=== PATIENT | female | born 1980 | race Caucasian/White ===

== ENCOUNTER → 2021-05-14 15:25 | Outpatient (CLI) | payer BC, SELFPAY ==
--- NOTE | ~2021-05-14 | MM_ITS ---
EXAMINATION: MM screening arcelia BI w kelly HISTORY: Screening mammogram TECHNIQUE: Craniocaudal and mediolateral oblique 3-D tomosynthesis images were obtained and synthetic 2-D images were generated. Bilateral rotated lateral CC views. CAD analysis was submitted and interp reted. COMPARISON: No prior mammogram is available for comparison at this institution. BREAST PARENCHYMAL COMPOSITION: FINDINGS: There are 6 mm and 7.5 mm circumscribed opacities in the upper outer left breast and 7 mm c ircumscribed opacity in the upper outer right breast. These are likely benign intramammary lymph node There is no evidence of suspicious mass, calcification, or architectural distortion to suggest malig faith in either breast. There has been no suspicious interval change. IMPRESSION: 1. No mammographic evidence of malignancy. 2. Recommend routine screening mammography in one year. BI-RADS Category 2: Benign finding(s). Reviewed, dictated and finalized at location A.
== END ==
PROVIDERS: Visit Provider Nurse Practitioner Obstetrics & Gynecology
DX: Z12.31 Encounter for screening mammogram for malignant neoplasm of breast (principal)
CPT/HCPCS: 77063; 77067

== ENCOUNTER 2022-07-04 16:24 | Emergency (ER) | payer BC, SELFPAY ==
[2022-07-04 16:30] VITALS: BP 130/88; PULSE 88; RESP 16; TEMP 37; O2SAT 100
--- NOTE | 2022-07-04 16:36 | ED.URI ---
HPI - URI/Sore Throat General Chief Complaint: Upper Respiratory Infection Stated Complaint: chest congestion, productive cough Time Seen by Provider: 07/04/22 16:36 Source: patient Mode of arrival: ambulatory History of Present Illness HPI Narrative: [age] year female presents with complaint of chest congestion, cough, sinus congestion for 4 days. Afebrile. No headache. No body aches or chills. Denies chest pain or shortness of breath. No nausea vomiting diarrhea. Taking [id number] medications to treat her symptoms without relief. States her father in law and had similar symptoms ever given a Z-Chevy. Patient is requesting an antibiotic. All systems reviewed and negative except as noted above. Related Data Allergies Allergy/AdvReac Type Severity Reaction Status Date / Time amoxicillin Allergy Unknown Itching Verified 07/04/22 16:44 Review of Systems Review of Systems: CONSTITUTIONAL: Denies fever, chills, or sweats. EYES: Denies visual changes, redness, or discharge. ENT: Reports rhinorrhea, congestion, sore throat. Denies otalgia. CARDIOVASCULAR: Denies chest pain, palpitations, or edema. RESPIRATORY: Reports cough. Denies dyspnea. GASTROINTESTINAL: Denies abdominal pain, nausea, vomiting, or diarrhea. GENITOURINARY: Denies dysuria or hematuria. SKIN: Denies rash or itching. MUSCULOSKELETAL: Denies back pain, joint pain, or myalgia. NEUROLOGIC: Denies headache, numbness, or weakness. PSYCHIATRIC: Denies anxiety or depression. All other systems reviewed are negative, except as documented in HPI. COUNT INCLUDES THE [facility] Social History Social History Smoking status: Never smoker Alcohol intake: never Exam Narrative: GENERAL: This is a well-nourished, well-developed patient, in no apparent distress. HEAD: normocephalic, atraumatic. EYES: PERRL. Sclera clear/white. Vision is grossly intact. EARS: External ears normal, auditory canals clear and without drainage, TMs normal without perforation. Hearing grossly intact. NOSE: External nose normal with clear nasal drainage, erythema to nares. THROAT: Mucous membranes moist, posterior pharynx clear. NECK: Neck supple, non-tender without lymphadenopathy, masses or thyromegaly. CARDIOVASCULAR: Regular rate and rhythm without murmurs, gallops, or rubs. RESPIRATORY: Clear to auscultation. Breath sounds equal bilaterally. No wheezes, rales, or rhonchi. SKIN: warm, Dry, intact with no suspicious lesions or rash, good texture and turgor. NEURO: awake, alert, and oriented to person, place and time. There were no obvious focal neurologic abnormalities. EXTREMITIES: No joint tenderness, effusion, or edema noted. Course Course Level of Care: Express Care Visit Vital Signs Vital signs: Vital Signs Temperature 37.0 C 07/04/22 16:30 Pulse Rate 88 07/04/22 16:30 Respiratory Rate 16 07/04/22 16:30 Blood Pressure 130/88 07/04/22 16:30 Pulse Oximetry 100 07/04/22 16:30 Oxygen Delivery Room Air 07/04/22 16:30 Temperature 37.0 C 07/04/22 16:30 Pulse Rate 88 07/04/22 16:30 Respiratory Rate 16 07/04/22 16:30 Blood Pressure 130/88 07/04/22 16:30 Pulse Oximetry 100 07/04/22 16:30 Oxygen Delivery Room Air 07/04/22 16:30 Reviewed MDM - URI/Sore Throat MDM Narrative Medical decision making narrative: Patient is well-appearing. Clear lung sounds. Symptoms viral. Explained to patient that an antibiotic is not required but she is insistent on having one. Patient is aware of diagnosis, understands and agrees to treatment plan. Anticipatory guidance given. Patient agrees to follow-up as directed and is aware of reasons to seek care at the emergency department. Portions of this record may have been created with voice recognition software Differential Diagnosis Differential diagnosis: Likely upper respiratory infection, sinusitis and viral infection Discharge Plan Discharge Clinical Impression: Acute upper respiratory infection
== END 2022-07-04 16:50 | disposition home or self-care (01) ==
PROVIDERS: Emergency Provider Nurse Practitioner Family; PCP Family Medicine
DX: J06.9 Acute upper respiratory infection, unspecified (principal)
CPT/HCPCS: 99203; G0463

== ENCOUNTER → 2022-08-19 11:01 | Outpatient (CLI) | payer BC, SELFPAY ==
--- NOTE | ~2022-08-19 | MM_ITS ---
EXAMINATION: MM screening arcelia BI w kelly HISTORY: Screening mammogram TECHNIQUE: Craniocaudal and mediolateral oblique 3-D tomosynthesis images were obtained and synthetic 2-D images were generated. CAD analysis was submitted and interpreted. COMPARISON: 05/14/2021 bilateral screening mammogram BREAST PARENCHYMAL COMPOSITION: The breasts are heterogeneously dense, which may obscure small masses . FINDINGS: Stable bilateral benign-appearing axillary tail circumscribed lymph nodes There is no evide nce of suspicious mass, calcification, or architectural distortion to suggest malignancy in either br east. There has been no suspicious interval change. IMPRESSION: 1. No mammographic evidence of malignancy. 2. Recommend routine screening mammography in one year. BI-RADS Category 2: Benign finding(s). Reviewed, dictated and finalized at location A. WRITER
== END ==
PROVIDERS: PCP Family Medicine; Visit Provider Nurse Practitioner Obstetrics & Gynecology
DX: Z12.31 Encounter for screening mammogram for malignant neoplasm of breast (principal)
CPT/HCPCS: 77063; 77067

== ENCOUNTER 2024-01-07 14:11 | Outpatient (CLI) | payer BC, SELFPAY ==
--- NOTE | ~2024-01-07 | MM_ITS ---
EXAMINATION: MM screening arcelia BI w kelly HISTORY: Screening TECHNIQUE: Craniocaudal and mediolateral oblique 3-D tomosynthesis images were obtained and synthetic 2-D images were generated. CAD analysis was submitted and interpreted. COMPARISON: Comparison to multiple prior studies sequentially, with oldest reviewed study dated 04/27. BREAST PARENCHYMAL COMPOSITION: There are scattered areas of fibroglandular density. FINDINGS: Bilateral asymmetries are stable. There is no evidence of suspicious mass, calcification, o r architectural distortion to suggest malignancy in either breast. There has been no suspicious inter clemente change. IMPRESSION: 1. No mammographic evidence of malignancy. 2. Recommend routine screening mammography in one year. BI-RADS Category 2: Benign finding(s). Reviewed, dictated and finalized at location B.
== END 2024-01-07 14:12 ==
LOC: MICIMG 14:12
PROVIDERS: PCP Nurse Practitioner Obstetrics & Gynecology; Visit Provider Nurse Practitioner Obstetrics & Gynecology
DX: Z12.31 Encounter for screening mammogram for malignant neoplasm of breast (principal)
CPT/HCPCS: 77063; 77067

== ENCOUNTER 2024-08-26 08:25 | Emergency (ER) | payer BC, SELFPAY ==
[2024-08-26 08:51] VITALS: BP 156/103; PULSE 86; RESP 16; TEMP 36.5; O2SAT 100
--- NOTE | 2024-08-26 09:27 | ED_ITS ---
HPI - URI/Sore Throat General Chief Complaint: Upper Respiratory Infection Stated Complaint: COUGH/CONGESTION Time Seen by Provider: 08/26/24 09:27 Source: patient, RN notes reviewed and old records reviewed Mode of arrival: ambulatory Limitations: no limitations History of Present Illness HPI Narrative: 43-year-old female presents to the [facility] with complaints of cough and congestion since new year'. States that prior to this she had sinus issues. Denies ever running a fever. Has been taken [id number] products with no relief. Denies any chest pain. Onset (ago): month(s) (1) Treatments prior to arrival: cold medicine Related Data Home Medications ?Medication ?Instructions ?Recorded ?Confirmed ?Last Taken ?Type No Home Medications 08/26/24 08/26/24 Unknown History Allergies Allergy/AdvReac Type Severity Reaction Status Date / Time amoxicillin Allergy Unknown Itching Verified 08/26/24 09:01 Review of Systems Review of Systems: All systems reviewed & are unremarkable except as noted in HPI and below Constitutional: Constitutional: Reports no additional constitutional complaints ENT: Reports system reviewed and no additional complaints, except as documented Cardiovascular: Cardiovascular: Reports no additional cardiovascular complaints, Denies chest pain and Denies dyspnea Respiratory: Respiratory: Reports as per HPI, Denies chest congestion, Reports cough and Denies dyspnea Musculoskeletal: Musculoskeletal: Reports no additional musculoskeletal complaints Integumentary/Breasts: Skin/Breast: Reports system reviewed and no additional complaints, except as docu PMFSH Social History Social History Smoking status: Never smoker Alcohol intake: never Comments At the time of my signature, I reviewed and agree with the nursing past medical, surgical, social, and family history. There is no relevant family history pertinent to the patient complaint. Exam Const: General: cooperative, healthy appearing, comfortable, no acute distress, well developed, alert and well nourished Nutritional Appearance: well nourished Orientation/consciousness: patient oriented x3 Limitations: no limitations HENMT: Head: normal to inspection Ears: hearing grossly normal bilaterally, external ears normal, TM's normal bilaterally, EAC's normal, mastoids normal and no periauricular adenopathy Mouth: Yes Normal oral and palatal mucosa present, Yes lip normal, Yes tongue normal and Yes moist mucous membranes Throat: posterior oropharynx normal, uvula midline and no uvular edema Eyes: General: appearance normal, both eyes and all related structures Alignment and Position: alignment normal Neck: Neck: normal visual inspection, full ROM, no lymphadenopathy and no meningeal signs Chest: Chest palpation & inspection: normal inspection of the chest Resp: Effort & Inspection: normal respiratory effort and able to speak in complete sentences Auscultation: clear to auscultation bilaterally, no crackles, no rales, no rhonchi and no wheezes Cardio: Rate: regular rate Skin: General skin exam: normal color and no rashes or lesions noted Neuro: General: patient oriented x3, gait normal, moves all extremities and no meningeal signs Cognition (Neuro): normal cognition Speech: normal speech Gait exam (Neuro): Normal gait present Extrem: General: normal to inspection, full ROM, capillary refill normal and normal gait Psych: Appearance: grossly normal and well kempt Mental Status: mental status grossly normal Speech and movement: Normal speech and movement present and Clear speech present Affect: normal affect Attitude: cooperative Course Course Level of Care: Express Care Visit Vital Signs Vital signs: Vital Signs Temperature 97.7 F 08/26/24 08:51 Pulse Rate 86 08/26/24 08:51 Respiratory Rate 16 08/26/24 08:51 Blood Pressure 156/103 H 08/26/24 08:51 Pulse Oximetry 100 08/26/24 08:51 Temperature 97.7 F 08/26/24 08:51 Pulse Rate 86 08/26/24 08:51 Respiratory Rate 16 08/26/24 08:51 Blood Pressure 156/103 H 08/26/24 08:51 Pulse Oximetry 100 08/26/24 08:51 Reviewed MDM - URI/Sore Throat MDM Narrative Medical decision making narrative: Patient sitting comfortably in exam room. Nontoxic, vitals stable. Cough x1 month. Started with URI symptoms which have resolved. No acute findings noted on exam. Discussed with patient that this could be a post viral bronchitis and can last for several weeks if not a couple of months. Due to length of symptoms will prescribe doxy as well as prednisone Patient appropriate for outpatient treatment and follow-up, blood pressure check Discharge instructions reviewed with patient, as well as provided in writing per nursing staff. The instructions also include specific and strict return/GO TO THE ER as well as f/u information. All questions have been answered, and the patient deny any further questions with discharge and discharge plan. Some parts of this dictation were generated by voice recognition software and may contain typographical and/or grammatical inaccuracies. Differential Diagnosis Differential diagnosis: Likely upper respiratory infection, otitis media, sinusitis, viral infection and bronchitis Critical Care Time Critical Care Time Critical Care Time: No Discharge Plan Discharge Clinical Impression: Bronchitis Patient Disposition: Home, Self-Care Condition: Stable Instructions: Acute Bronchitis (ED) Additional Instructions: Today your blood pressure was 156/103. Is recommended that you follow-up with your primary care provider within the next 2 weeks to have your blood pressure rechecked. It is very important to treat your symptoms. Drink plenty of water, Gatorade, Pedialyte, ice pops or Jell-O. -Alternate Tylenol and Motrin per package directions for fever or pain. You can alternate every 4 hours -Antihistamine medication such as Zyrtec/Claritin/Teetee during the day can help improve symptoms. -doing daily nasal irrigations can help relieve pressure your sinuses. Things like a Neti pot -Use Flonase twice a day for 5 days then daily to help reduce the inflammation and dry up your sinuses. -You can also use Mucinex. Be sure to drink plenty of water with this medication at least 8 ounces with every dose and it is important to drink 8 to 10 glasses of water per day. Water is a natural decongestant -Eat and drink things that are easy to swallow, like tea or soup, or popsicles. -Oral rinses such as: Salt water gargles and/or may use topical anesthetic (eg. Chloraseptic spray) or lozenges to relieve dryness or throat pain). -Frequent hand washing or hand scientific informatics leader is one of the best ways to prevent spread of infection. -Using a vaporizer or humidifier at night will also help thin secretions and help with coughing up phlegm. -Follow up with primary care provider in 7-10 days if condition is not improving - For new or worsening symptoms go directly to the nearest ER Patient Language: Upper Sorbian Prescriptions: New doxycycline monohydrate 100 mg tablet 100 mg PO BID Qty: 14 0RF prednisone 20 mg tablet See Rx Instructions .Route .COMPLEX Qty: 9 0RF Rx Instructions: Take 40 mg daily for 3 days, 20 mg daily for 3 days No Action No Home Medications Follow-up/Referrals: Ab Marx MD [Primary Care Provider[facility] Blood pressure check, 156/103) Time of Disposition: 09:41
== END 2024-08-26 09:54 | disposition home or self-care (01) ==
PROVIDERS: Emergency Provider Nurse Practitioner; PCP Family Medicine
DX: J40 Bronchitis, not specified as acute or chronic (principal)
CPT/HCPCS: 99213; G0463

== ENCOUNTER 2024-12-10 08:19 | Outpatient (CLI) | payer BC, SELFPAY ==
--- OUTSIDE RECORDS SUMMARY | 2024-12-10 08:26 | XMS_ITS | Data Portability ---
Author Organization [facility] Address [address] [place] [address] [place] [address] Care Team Providers Care Post Framer Name Role Phone BARBIE COLE Primary Care Provider [phone] Assessment Encounter Date Assessment Date Assessment LastModified by Organization Details LastModified Time 04/17/2021 04/17/2021 Annual gynecological exam performed. Patient will come back in a year unless there are new symptoms. Not available 04/16/2021 11:50:39 07/01/2022 07/01/2022 Annual gynecological exam performed. Patient will come back in a year unless there are new symptoms. Not available 07/01/2022 10:48:02 09/09/2023 09/09/2023 Annual gynecological exam performed. Patient will come back in a year unless there are new symptoms. [email or web address] Not available 09/09/2023 09:16:39 09/13/2024 09/13/2024 Annual gynecological exam performed. Patient will come back in a year unless there are new symptoms. [email or web address] Not available 09/13/2024 09:22:11 Plan of Treatment Reminders Order Date Submit Date Provider Last Modified By Organization Details Last Modified Time Details Appointments None recorded. Lab None recorded. Referral None recorded. Procedures None recorded. Surgeries None recorded. Imaging MAMMO, screening, digital, bilateral 2024 025 [facility], [address], [place], [address], 02/24/202 5 04:04:05 MAMMO, screening, bilateral 2023 024 [facility], [address], [facility] [address], [place], [address], 4 17:37:07 Medication Orders None recorded. Patient TargetsNo targets recorded. Patient InstructionsNo instructions recorded. Reason for Referral None Reported. Results Created Date Observation Date Name Description Value Unit Range Abnormal Flag Note LastModifiedBy Organization Detail LastModifiedTime 04/17/20 21 04/17/2021 IMAGE GUIDE D PAP AND HPV REGAR DLESS image guided Pap, HPV regardless of Pap result SEE RESULT S BELOW CASE REPOR T: Cytol ogy Gynec ologi radha Repor t Case: [id number] Autho isma ruiz Provi violet: Adalid Patrick Colle cted: 04/17 1156 FIELD SUPPORT REP Order ing Locat ion: [place] [facility] Recei suman: 04/18 0702 First Scree n: Bear [place], POLA Speci men: Scree breann Pap - Image d, Cervi x STATE MENT OF ADEQU ACY: Satis facto ry for evalu ation Trans forma tion zone compo nent prese nt FINAL DIAGN OSIS: Negat alessia for Intra epith elial Mohan n or Karen cuevas (NIL) Elect fermin hernandez nayeli d by Bear [place], CT on 2020 at 11:03 AM ----- ----- ----- ----- ----- ----- ----- ----- ----- ----- ----- ----- ----- ----- ----- ----- ----- ---- HPV RESUL TS: HPV mRNA E6/E7 : No HPV mRNA Detec rosita NOTE: This high risk HPV mRNA assay detec ts fourt een high- risk HPV types (16, 18, 31, 33, 35, 39, 45, 51, 52, 56, 58, 59, 66, 68) witho ut diffe renti ation . COMME NT: Note: This speci men was revie wed by a Cytot echno logis t and/o r Patho logis t (as indic ated in this repor t) after evalu ation using the Thinp rep Imagi ng Syste m. CLINI RADHA INFOR MATIO N: Menst rual Statu s: LMP (if appli cable ): 2020 Clini radha Histo ry/Pr eviou s Pap: Type of Neopl benedict (if appli cable ): Signi fican t Clini radha Findi ngs: Other Histo ry: Hormo jason (if appli cable ): PAP EDUCA FRANSISCA L NOTE: The Pap Test is a scree breann test with an inher ent false negat alessia rate. Liqui d-bas e sampl ing may decre ase, but will not elimi jose, false negat alessia resul ts. A negat alessia resul t does not precl ude the prese nce and/o r devel opmen t of disea se, since the prese nce of abnor mal cells in the sampl e depen ds on the locat ion of the lesio n and sampl ing techn ique. Osmany nued regul ar scree breann is the best metho d of cance r preve ntion . If repor rosita cytol ogic findi ng do not corre late with physi radha and/o r histo rical findi ngs, furth er inves tigat ion is recom puja d, as clini trevor vera nted. Not Available [facility] (Lab) [address] , [place], [address], 04/21/2021 12:04:58 04/17/20 21 04/17/2021 TRICH OMONA S VAGIN YANICK (RRNA ) trichomonas vaginalis ribosomal RNA (rrna) Negati ve negati ve Not Available [facility] (Lab) [address], [place], [address], 04/21/2021 12:04:58 04/17/20 21 04/17/2021 CT/GC (JORY) , THINP REP VIAL chlamydia trachomatis, PCR Negati ve negati ve Not Available [facility] (Lab) [address] [facility], [place], [address], 04/21/2021 12:04:59 04/17/20 21 04/17/2021 CT/GC (JORY) , THINP REP VIAL neisseria gonorrhoeae, PCR Negati ve negati ve Not Available [facility] (Lab) [address], [place], [address], 04/21/2021 12:04:59 07/01/20 22 07/01/2022 IMAGE GUIDE D PAP AND HPV REGAR DLESS image guided Pap, HPV regardless of Pap result SEE RESULT S BELOW CASE REPOR T: Cytol ogy Gynec ologi radha Repor t Case: [id number] Autho isma ruiz Provi violet: Adalid Patrick Colle cted: 07/01 1653 FIELD SUPPORT REP Order ing Locat ion: [place] Path[facility] [place] Recei suman: 07/02 0115 First Scree n: Yany Hidalgo ica Rescr een: Ileana Archer Speci men: Scree breann Pap - Image d, Cervi x STATE MENT OF ADEQU ACY: UNSAT ISFAC TORY SPECI MEN FINAL DIAGN OSIS: Unsat isfac tory for evalu ation . Inade quate squam ous epith elial compo nent for diagn osis. Chase tyler d by Ileana Archer on 2021 at 5:02 PM ----- ----- ----- ----- ----- ----- ----- ----- ----- ----- ----- ----- ----- ----- ----- ----- ----- ---- HPV RESUL TS: HPV mRNA E6/E7 : No HPV mRNA Detec rosita NOTE: This high risk HPV mRNA assay detec ts fourt een high- risk HPV types (16, 18, 31, 33, 35, 39, 45, 51, 52, 56, 58, 59, 66, 68) witho ut diffe renti ation . COMME NT: Slide scree robert rubin mimsy due to rejec tion by the Thinp rep Maria Estheri jennifer Wheatley mBoaz CLINI RADHA INFOR MATIO N: Menst rual Statu s: LMP (if appli cable ): Clini radha Histo ry/Pr eviou s Pap: Type of Neopl benedict (if appli cable ): Signi fican t Clini radha Findi ngs: Other Histo ry: Hormo jason (if appli cable ): Not Available [facility] (Lab) [address], [place], [address], 07/02/2022 18:05:31 09/09/19 24 09/09/2023 IMAGE GUIDE D PAP AND HPV REGAR DLESS image guided Pap, HPV regardless of Pap result SEE RESULT S BELOW CASE REPOR T: Cytol ogy Gynec ologi radha Repor t Case: [id number] Autho isma ruiz Provi violet: Adalid Patrick Colle cted: 09/09 1517 FIELD SUPPORT REP Order ing Locat ion: [place] [facility] Recei suman: 09/10 0344 First Scree n: Rebeca Chin ed, CT Speci men: Manoj beaverg Pap - Image d, Cervi x STATE MENT OF ADEQU ACY: Satis facto ry for evalu ation Trans forma tion zone compo nent prese nt FINAL DIAGN OSIS: Negat alessia for Intra epith elial Mohan milligan or Karen cuevas (NIL) . Chase hernandez nayeli d by Rebeca Chin ed, CT on 2023 at 6:06 PM ----- ----- ----- ----- ----- ----- ----- ----- ----- ----- ----- ----- ----- ----- ----- ----- ----- ---- HPV RESUL TS: HPV mRNA E6/E7 : No HPV mRNA Detec rosita NOTE: This high risk HPV mRNA assay detec ts fourt een high- risk HPV types (16, 18, 31, 33, 35, 39, 45, 51, 52, 56, 58, 59, 66, 68) witho ut diffe renti ation . COMME NT: This speci men was revie wed by a Cytot echno logis t and/o r Patho logis t (as indic ated in this repor t) after evalu ation using the Thinp rep Imagi ng Syste m. CLINI RADHA INFOR MATIO N: Menst rual Statu s: LMP (if appli cable ): Clini radha Histo ry/Pr eviou s Pap: Type of Neopl benedict (if appli cable ): Signi fican t Clini radha Findi ngs: Other Histo ry: Hormo jason (if appli cable ): PAP EDUCA FRANSISCA L NOTE: The Pap Test is a scree breann test with an inher ent false negat alessia rate. Liqui d-bas ed sampl ing may decre ase, but will not elimi jose, false negat alessia resul ts. A negat alessia resul t does not precl ude the prese nce and/o r devel opmen t of disea se, since the prese nce of abnor mal cells in the sampl e depen ds on the locat ion of the lesio n and sampl ing techn ique. Osmany nued regul ar scree breann is the best metho d of cance r preve ntion . If repor rosita cytol ogic findi ng do not corre late with physi radha and/o r histo rical findi ngs, furth er inves tigat ion is recom puja d, as clini trevor warra nted. Not Available [facility] (Lab) [address], [place], [address], 09/12/2023 19:09:19 05/14/20 21 05/14/2021 MAMMO , scree breann, bilat eral No observ ation record ed. [facility] [address], [place], [address], 05/18/2021 13:43:57 08/19/19 23 08/19/2022 MAMMO , scree breann, bilat eral No observ ation record ed. [email or web address] [facility] [address], [place], [address], 09/09/2023 10:45:19 01/07/20 24 01/07/2024 MAMMO , scree breann, bilat eral No observ ation record ed. [facility] [address], [place], [address], 05/12/2024 13:16:39 Result Notes None recorded. Problems Name Problem SNOMED Code Status Onset Date Resolution Date Notes Provider Name and Address Organization Details Recorded Time Speciali zed medical examinat ion Completed 201404/16/2021 Gynecolo gical Examinat ion;Mathew rded Elsewher e: No Locat ion: [facility] S ource: EHR General Production Manager maverick: N Dmitry ce ID: 0001 Jelani lable Time: 01:00:00 PM [facility] 1 11:33:29 Pregnanc y detectio n examinat ion Completed 201504/16/2021 Encounte r for pregnanc y test, result positive ;Recorde d Elsewher e: No Locat ion: [facility] S ource: EHR General Production Manager maverick: N Dejahti ce ID: 0001 Jelani lable Time: 11:30:00 AM Lena [facility] 1 11:33:11 Postoper ative follow-u p visit Completed 201304/16/2021 Follow-u p examinat ion, followin g unspecif ied surgery; Recorded Elsewher e: No Locat ion: [facility] S ource: EHR General Production Manager maverick: N Dejahti ce ID: 0001 Jelani lable Time: 02:30:00 PM Lena Salvador [facility] 1 11:33:08 Antenata l care: multipar ous, older than 35 years [id number] Completed 201504/16/2021 Supervis ion of elderly multigra dinora, second trimeste r;Record ed Elsewher e: No Locat ion: [facility] S ource: EHR General Production Manager maverick: N Dejahti ce ID: 0001 Jelani lable Time: 10:00:00 AM [facility] 11:32:40 Medical examinat ion for suspecte d conditio n Completed 201504/16/2021 Encounte r for suspecte d anomaly ruled out;Mathew rded Elsewher e: No Locat ion: [facility] S ource: EHR General Production Manager maverick: N Dejahti ce ID: 0001 Jelani lable Time: 10:00:00 AM Lena Salvador [facility] 1 11:33:04 Ultrason ography Completed 201304/16/2021 Antenata l screenin g for malforma tion using ultrason ics;Mathew rded Elsewher e: No Locat ion: [facility] S ource: EHR General Production Manager maverick: N Dejahti ce ID: 0001 Jelani lable Time: 04:00:00 PM Lena Salvador [facility] 1 11:33:32 Antenata l screenin g Completed 201304/16/2021 Antenata l screenin g for malforma tion using ultrason ics;Mathew rded Elsewher e: No Locat ion: [facility] S ource: EHR General Production Manager maverick: N Dejahti ce ID: 0001 Jelani lable Time: 04:00:00 PM Lena Salvador [facility] 11:32:42 Congenit al malforma tion [id number] Completed 201304/16/2021 Antenata l screenin g for malforma tion using ultrason ics;Mathew rded Elsewher e: No [facility]: EHR General Production Manager maverick: N Practi ce ID: 0001 Jelani lable Time: 04:00:00 PM Lena Salvador [facility], [facility] 1 11:32:50 Primigra dinora [id number] Completed 201304/16/2021 Supervis ion of normal first pregnanc y;Record ed Elsewher e: No Locat ion: [facility] S ource: EHR General Production Manager maverick: N Dejahti ce ID: 0001 Jelani lable Time: 02:00:00 PM Lena Salvador [facility], [facility] 11:33:16 Threaten ed miscarri age [id number] Completed 201204/16/2021 Threaten ed , antepart um;Recor ded Elsewher e: No Locat ion: [facility] S ource: EHR General Production Manager maverick: N Dejahti ce ID: 0001 Jelani lable Time: 01:00:00 PM Lena Salvador [facility], [facility] 11:33:31 Gestatio n less than 9 weeks [id number] Completed 201504/16/2021 Less than 8 weeks gestatio n of pregnanc y;Record ed Elsewher e: No Locat ion: [facility] S ource: EHR General Production Manager maverick: N Practi ce ID: 0001 Jelani lable Time: 02:45:00 PM Lena Salvador [facility], [facility] 11:32:55 Acute vaginiti s [id number] Completed 201704/16/2021 Acute vulvovag initis;R ecorded Elsewher e: No Locat ion: [facility] S ource: EHR General Production Manager maverick: N Practi ce ID: 0001 Jelani lable Time: 02:30:00 PM Lena Salvador [facility], [facility] 11:32:34 Delivery by elective section [id number] Completed 201604/16/2021 Encounte r for delivery without indicati on;Recor ded Elsewher e: No Locat ion: [facility] S ource: EHR General Production Manager maverick: N Dejahti ce ID: 0001 Jelani lable Time: 03:45:00 PM Lena Salvador [facility] 11:32:54 Normal pregnanc y in multigra dinora [id number] Completed 201504/16/2021 Encounte r for supervis ion of other normal pregnanc y, 1st trimeste r;Record ed Elsewher e: No Locat ion: [facility] S ource: EHR General Production Manager maverick: N Practi ce ID: 0001 Jelani lable Time: 02:45:00 PM Lena Salvador [facility] 11:33:05 Adult health examinat ion Completed 201404/16/2021 ROUTINE MEDICAL EXAM;Rec orded Elsewher e: No Locat ion: [facility] S ource: EHR General Production Manager maverick: N Dejahti ce ID: 0001 Jelani lable Time: 01:00:00 PM Lena Salvador [facility] 11:32:37 Administ ration of viral vaccine Completed 201004/16/2021 HPV Prophyla ctic Immuniza tion;Pra ctice ID: 0001 Lena Salvador [facility] 11:32:35 Screenin g for malignan t neoplasm of cervix Completed 201104/16/2021 Pap Smear;Pr actice ID: 0001 Lena Salvador [facility] 11:33:18 Atypical squamous cells of undeterm ined signific ance on cervical Papanico laou smear [id number] Completed 201104/16/2021 Pap Abnormal ASCUS;Pr actice ID: 0001 Lena Salvador null, [facility] 11:32:44 Pregnanc y test negative [id number] Completed 201104/16/2021 Negative Pregnanc y Test;Pra ctice ID: 0001 Lena tirado, [facility] 11:33:13 Amenorrh ea [id number] Completed 201204/16/2021 AMENORRH EA;Pract ice ID: 0001 Lena tirado, [facility] 11:32:39 Pregnanc y test positive [id number] Completed 201204/16/2021 Positive Pregnanc y Test;Pra ctice ID: 0001 Lena tirado, [facility] 11:33:14 Complete Completed 201204/16/2021 Spontane ous , complete , without mention of complica tion;Pra ctice ID: 0001 Lena tirado, [facility] 11:32:47 Complica tion related to pregnanc y Completed 201304/16/2021 Antepart um edema or excessiv e weight gain;Pra ctice ID: 0001 Lena tirado, [facility] 11:32:49 Labor and delivery complica rosita by heart rate anomaly [id number] Completed 201304/16/2021 HEART RATE NON REASSURI NG;Pract ice ID: 0001 Lena tirado, [facility] 11:33:00 Postpart um care Completed 201304/16/2021 Postpart um follow-u p;Practi ce ID: 0001 Lena tirado, [facility] 11:33:09 Single live from singleto n pregnanc y [id number] Completed 201304/16/2021 Mother with single liveborn ;Practic e ID: 0001 Lena tirado, [facility] 11:33:22 Umbilica l hernia [id number] Completed 201304/16/2021 Umbilica l hernia without mention of obstruct ion or gangrene ;Practic e ID: 0001 Lena tirado, [facility] 11:33:[address] Concept Completed 201504/16/2021 Encntr for mounter brass wind instruments exam (general ) (routine ) w/o abn findings ;Practic e ID: [address] [facility] 11:33:27 Secondar y amenorrh ea [id number] Completed 201504/16/2021 Secondar y amenorrh ea;Pract ice ID: 0001 Lena Salvador [facility] 11:33:20 Gestatio n period, 21 weeks [id number] Completed 201504/16/2021 21 weeks gestatio n of pregnanc y;Practi ce ID: 0001 Lena Salvador [facility], [facility] 11:32:57 Sinusiti s [id number] Completed 201504/16/2021 Chronic sinusiti s, unspecif ied;Prac gavin ID: 0001 Lena tirado, [facility] 11:33:24 Clinical finding Completed 201504/16/2021 state, incident al;Pract ice ID: 0001 Lena Salvador [facility], [facility] 11:32:46 Uterine scar from previous surgery affectin g pregnanc y [id number] Completed 201604/16/2021 Matern care for low transver se scar from prev del;Prac gavin ID: 0001 Lena tirado, [facility] 11:33:37 Gestatio n period, 39 weeks [id number] Completed 201604/16/2021 39 weeks gestatio n of pregnanc y;Practi ce ID: 0001 Lena Salvador [facility] 1 11:32:59 Lochia finding Completed 201604/16/2021 Encounte r for routine postpart um follow-u p;Record ed Elsewher e: No [facility]: [facility] General Production Manager maverick: N Practi ce ID: 0001 Jelani lable Time: 03:00:00 PM Lena Salvador [facility] 1 11:33:02 Deliveri es by [id number] Completed 201304/16/2021 delivery , without mention of indicati on, unspecif ied as to episode of care;Rec orded Elsewher e: No Locat ion: [facility] S ource: EHR General Production Manager maverick: N Practi ce ID: 0001 Jelani lable Time: 12:00:00 PM Lena Salvador [facility] 1 11:32:[address] Concept Completed 201604/16/2021 Encntr for general adult medical exam w/o abnormal findings ;Recorde d Elsewher e: No Locat ion: [facility] S ource: EHR General Production Manager maverick: N Practi ce ID: 0001 Jelani lable Time: 01:00:00 PM Lena Salvador [facility] 1 11:33:26 Problem Notes None recorded. Procedures Surgical History Date Name Laterality Status Provider Name and Address Organization Details Recorded Time 4 Date of Last Mammogram completed [facility] 09/13/2024 09:40:52 4 Date of Last Pap Smear completed [facility] 09/13/2024 09:41:11 4 [facility] 04/16/2021 11:39:28 2 Colposcopy completed [facility] 04/16/2021 11:45:17 Hernia repair w/mesh completed [facility] 04/16/2021 11:37:53 Caesarean Section completed [facility] 04/17/2021 11:33:07 Imaging Results Imaging Date Name Status LastModified by Organiz ation Details LastModified Time 05/14/2021 MAMMO, screening, bilateral completed [facility] [address], [place], [address], 05/18/2021 13:43:57 08/19/2022 MAMMO, screening, bilateral completed [address] [facility] [address], [place], [address], 09/09/2023 10:45:19 01/07/2024 MAMMO, screening, bilateral completed [facility] [address], [place], [address], 05/12/2024 13:16:39 Procedure Notes None recorded. Medical Equipment None Reported. Allergies Allergen ID Allergen Name Allergen Category Reaction Reaction Severity Criticality Documentation Date Start Date Code Code System Note Provider Name and Address Organization Details Recorded Time 55604 amoxicill in medicatio n itching moderate Not available 04/17/2021 723 RxNorm [facility] 11:32:35 Medications Name Sig Start Date Stop Date Status Note LastModified by Organization Details LastModified Time prednison e 10 mg tablet TAKE 2 TABLETS BY MOUTH EVERY DAY FOR 3 DAYS THEN TAKE 1 TABLET BY MOUTH EVERY DAY FOR 3 DAYS 09/09 completed Not Available Not Available Not Available prednison e 20 mg tablet TAKE 2 TABLETS BY MOUTH DAILY FOR 3 DAYS THEN TAKE 1 TABLET BY MOUTH DAILY FOR 3 DAYS 09/13 completed Not Available Not Available Not Available Diflucan 150 mg tablet take 1 tablet by oral route once 05/13 completed Prescrib ed Elsewher e: No Locat ion: [facility] odify By: jorden palaciosuntdeena DateTime : 09/24/19 18 02:30:00 PM Not Available Not Available Not Available doxycycli ne monohydra te 100 mg tablet TAKE 1 TABLET BY MOUTH TWICE DAILY 09/13 completed Not Available Not Available Not Available Zofran 4 mg tablet take 1 by Oral route every 6 hours as needed 12/12 completed Prescrib ed Elsewher e: No Locat ion: [facility]ify By: waylon palaciosuntdeena DateTime : 10/30/19 04:00:00 PM Not Available Not Available Not Available Metrogel Vaginal 0.75 % (37.5 mg/5 gram) insert 1 applicat orful by vaginal route for 5 nights at bedtime 05/13 completed Prescrib ed Elsewher e: No Locat ion: [facility] By: jorden Leong ncounter DateTime : 09/30/19 18 10:47:46 AM Not Available Not Available Not Available Vitamin D2 1,250 mcg (50,000 unit) capsule take 1 capsule (86769PR ITS) by oral route every week 12/12 completed Prescrib ed Elsewher e: No Locat ion: [facility]ify By: waylon palaciosuntdeena DateTime : 09/02/19 14 09:38:50 AM Not Available Not Available Not Available Augmentin 500 mg-125 mg tablet take 1 tablet by oral route every 12 hours 12/12 completed Prescrib ed Elsewher e: No Locat ion: [facility] odify By: waylon palaciosuntdeena DateTime : 07/10/20 16 11:30:00 AM Not Available Not Available Not Available Tablet 28 mg iron-800 mcg 12/12 completed Prescrib ed Elsewher e: Yes Loca tion: [facility] odify By: amkuhl E ncounter DateTime : 04/26/20 14 01:30:00 PM Not Available Not Available Not Available Quasense 0.15 mg-30 mcg (91) tablets,3 month dose pack take 1 tablet by oral route every day 04/12 completed Prescrib ed Elsewher e: No Locat ion: [facility] odify By: jerod santamaria DateTime : 11/12/19 12 09:30:00 AM Not Available Not Available Not Available Cleo palacioso DHA 29 mg-1 mg-400 mg oral pack take 1 by Oral route 09/24 completed Prescrib ed Elsewher e: No Locat ion: [facility] odify By: petr Camacho nter DateTime : 03/27/20 16 02:45:00 PM Not Available Not Available Not Available Vuity 1.25 % eye drops INSTILL 1 DROP IN BOTH EYES EVERY DAY 2024 active Not Available Not Available Not Avai labmatthew Vitals Date Recorded Body height Body mass index (BMI) Body weight Systolic blood pressure Diastolic blood pressure Provider Name and Address Organization Details Last Updated DateTime 04/17/2021 168.91 cm 32.1 kg/m2 27571.66 g 121 mm[Hg] 84 mm[Hg] [facility] 1 11:32:28 Date Recorded Body height Body mass index (BMI) Body weight Systolic blood pressure Diastolic blood pressure Provider Name and Address Organization Details Last Updated DateTime 07/01/2022 168.91 cm 33.1 kg/m2 91783.21 g 120 mm[Hg] 74 mm[Hg] [facility] 2 10:48:34 Date Recorded Body height Body mass index (BMI) Body weight Systolic blood pressure Diastolic blood pressure Systolic blood pressure Diastolic blood pressure Provider Name and Address Organization Details Last Updated DateTime 4 168.91 cm 34.7 kg/m2 81290.1 4 g 142 mm[Hg] 91 mm[Hg] 154 mm[Hg] 80 mm[Hg] January Andres [facility] 4 09:38:52 Date Recorded Body height Body mass index (BMI) Body weight Systolic blood pressure Diastolic blood pressure Provider Name and Address Organization Details Last Updated DateTime 09/13/2024 168.91 cm 33.3 kg/m2 70683.24 g 150 mm[Hg] 92 mm[Hg] Tasia [facility] 5 09:49:01 Social History Question Answer Notes LastModified by Organizat ion Details LastModified Time Tobacco Smoking Status Never Smoker Yenifer Cardona ceelstino, [facility] 07/01/2022 10:36:05 Do You Have An Advance Directive? No Information n ot available 04/17/2021 How Many Years Have You Consumed Alcohol? 20 Information not available 04/17/2021 Are You Blind Or Do You Have Difficulty Seeing? No Information n ot available 04/16/2021 What Is Your Level Of Caffeine Consumption? Occasional Information not available 04/16/2021 How Much Tobacco Do You Chew? None Information not available 04/17/2021 In The 14 Days Before Symptom Onset, Have You Had Close Contact With A Laboratory-confirm ed COVID-19 While That Case Was Ill? No Information n ot available 04/17/2021 In The 14 Days Before Symptom Onset, Have You Had Close Contact With A Person Who Is Under Investigation For COVID-19 While That Person Was Ill? No Information not available 04/17/2021 Have You Been To An Area Known To Be High Risk For COVID-19? No Information not available 04/17/2021 Are You Deaf Or Do You Have Serious Difficulty Hearing? No Information not available 04/16/2021 What Type Of Diet Are You Following? REGULAR Information n ot available 04/16/2021 What Is The Highest Grade Or Level Of School You Have Completed Or The Highest Degree You Have Received? [id number] Information not available 04/17/2021 Are There Any Guns Present In Your Home? Yes Information not available 04/17/2021 Do You Use Protection During Sex? Always Information not available 04/17/2021 Do You Use Your Seat Belt Or Car Seat Routinely? Yes Information not available 04/16/2021 Do You Have Smoke And Carbon Monoxide Detectors In Your Home? Yes Information not available 04/16/2021 How Much Tobacco Do You Smoke? No Information not available 04/17/2021 Do You Use Sunscreen Routinely? Yes Information not available 04/16/2021 Have You Used IV Drugs? No Information not available 04/17/2021 Do You Have Difficulty Walking Or Climbing Stairs? No Information not available 07/01/2022 Sex: Female Functional Status Question Answer Note LastModified by Organizat ion Details LastModified Time Do you use any illicit or recreational drugs? No Information not available 04/16/2021 What is your level of alcohol consumption? Occasional Information not available 04/17/2021 Are you able to walk? YESWOREST Information not available 04/16/2021 Are you able to care for yourself? 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 No Information not available 07/01/2022 What is your exercise level? Occasional Information not available 04/17/2021 Mental Status Question Answer Note LastModified by Organization D etails LastModified Time Do you feel stressed (tense, restless, nervous, or anxious, or unable to sleep at night)? [id number] Information not available 09/13/2024 Family History Relationship Description Onset Age of this Age Resolved Age N [id number]|2024-12-10 08:28:00|2024-12-10 08:27:00|XMS_ITS|KENDELL BEASLEY|External Medical Summaries|[id number]|" Continuity of Care Document (C-CDA R2.1) (Encounter date: 11/24/1999 12:00 AM) Created on: December 10, 2024 Herb Miles : 04/08/1947 Sex: Male Author Organization [facility] [place] Address [address] [place] [address] Phone Care Team Providers Care Post Framer Name Role Phone [facility] Unavailable Unavail able Marycarmen Bar Unavailable Unavailable Advance Directives Directive Yes / No Effective Date File Name No Information Encounters Encounter Description Practice Location Reason(s) For Visit Diagnoses Date Provider Providers Copied on Encounter [facility], [address], [place], [place], [id number], [place] tel:[phone] [facility] No Information [phone] [facility]. [address], [address], [place], [place], [id number] , [place]. tel:[phone] Referring Provider: Lei Sanchez, [address], [place], [address]. tel:[phone] g Provider: Marycarmen Bar, [address] [place], [address]. tel:[phone] Family History Family Member Type Diagnosis Age At Onset No Information Payers Payer name Insurance type Covered republican ID Authoriza tion(s) No Information Social History Type Description Quantity Date Captured Comments Sex Male Smoking Status No Information Chief Complaint And Reason For Visit No Information Reason For Referral Reason For Referral No Information History Of Present Illness Encounter Date Complaint History Of Prese nt Illness No Information Functional Status Date Functional Assessmen t No Information Instructions Date Instruction Additional Infor mation No Information Assessments Type Assessment Date No Information Patient Care Teams Name Effective Dates (start - stop) Status Members No Information "
[2024-12-10 08:42] LABS: Basophils Percent Auto 0.4 % (0.2-1.2); Eosinophils Absolute Auto 0.2 K/mm3 (0-0.3); Eosinophils Percent Auto 3.3 % (0-4.4); Hematocrit 41.5 % (37.0-47.0); Hemoglobin 13.6 g/dL (12.0-15.0); Immature Granulocyte Absolute 0.04 K/mm3 (0.00-0.031); Immature Granulocyte Percent A 0.5 % (0-0.5); Lymphocytes Absolute Auto 2.08 K/mm3 (0.9-3.2); Lymphocytes Percent Auto 28.5 % (18.3-44.2); Mean Corpuscular HGB Conc 32.8 g/dl (32-36); Mean Corpuscular Hemoglobin 29.6 pg (26-34); Mean Corpuscular Volume 90.4 fl (80-100); Mean Platelet Volume 9.6 fl (7.4-10.4); Monocytes Absolute Auto 0.4 K/mm3 (0.1-0.6); Monocytes Percent Auto 5.8 % (2.6-8.5); Neutrophils Absolute Auto 4.5 K/mm3 (1.3-6.7); Neutrophils Percent Auto 61.5 % (45.5-73.1); Platelet Count Result 230 k/mm3 (150-375); Red Blood Count 4.59 M/mm3 (4.2-5.4); Red Cell Distribution Width 12.6 % (11.5-14.5); White Blood Count 7.3 K/mm3 (4.5-10.0)
[2024-12-10 08:47] LABS: Alanine Aminotransferase 21 U/L (6-35); Albumin Level 4.5 g/dL (3.5-5.1); Alkaline Phosphatase 55 U/L (38-126); Anion Gap 9 mmol/L (4-12); Aspartate Amino Transferase 29 U/L (14-36); Bilirubin,Total 0.6 mg/dL (0.2-1.3); Blood Urea Nitrogen 13 mg/dL (7-17); Carbon Dioxide 26 mmol/L (22-30); Chloride 104 mmol/L (98-107); Cholesterol 239 mg/dL (0-200); Estimated Glomerular Filt Rate > 60; Glucose 96 mg/dL (65-110); HDL Direct 62 mg/dL; Potassium 4.2 mmol/L (3.4-5.0); Sodium 139 mmol/L (137-145); Triglycerides 122 mg/dL (<150)
[2024-12-10 08:58] LABS: LDL Cholesterol Direct 123 mg/dL
[2024-12-10 09:04] LABS: Vitamin D 25 Hydroxy 39.6 ng/mL
[2024-12-10 09:17] LABS: Cortisol Random 5.02 ug/dL
== END 2024-12-10 08:20 | disposition home or self-care (01) ==
LOC: ANHLAB 08:21
PROVIDERS: PCP Family Medicine
DX: R03.0 Elevated blood-pressure reading, without diagnosis of hypertension (principal); Z13.1 Encounter for screening for diabetes mellitus; Z13.29 Encounter for screening for other suspected endocrine disorder; Z13.0 Encounter for screening for diseases of the blood and blood-forming organs and certain disorders involving the immune mechanism; Z13.220 Encounter for screening for lipoid disorders; E55.9 Vitamin D deficiency, unspecified; G47.00 Insomnia, unspecified
CPT/HCPCS: 36415; 80053; 80061; 82306; 82533; 84443; 85025

== ENCOUNTER 2025-01-10 10:11 | Outpatient (CLI) | payer BC, SELFPAY ==
--- NOTE | ~2025-01-10 | MM_ITS ---
EXAMINATION: MM screening arcelia BI w kelly HISTORY: Screening TECHNIQUE: Craniocaudal and mediolateral oblique 3-D tomosynthesis images were obtained and synthetic 2-D images were generated. CAD analysis was submitted and interpreted. COMPARISON: Comparison to multiple prior studies sequentially, with oldest reviewed study dated 04/27. BREAST PARENCHYMAL COMPOSITION: Dense: The breasts are heterogeneously dense, which may obscure small masses FINDINGS: There is no evidence of suspicious mass, calcification, or architectural distortion to sugg est malignancy in either breast. There has been no suspicious interval change. IMPRESSION: 1. No mammographic evidence of malignancy. 2. Recommend routine screening mammography in one year. BI-RADS Category 1: Negative Reviewed, dictated and finalized at location A.
== END 2025-01-10 10:12 | disposition home or self-care (01) ==
LOC: MICIMG 10:12
PROVIDERS: PCP Family Medicine; Visit Provider Student in an Organized Health Care Education/Training Program
DX: Z12.31 Encounter for screening mammogram for malignant neoplasm of breast (principal)
CPT/HCPCS: 77063; 77067